=== PATIENT | female | born 1980 | race Caucasian/White ===

== ENCOUNTER 2016-06-28 08:13 | Emergency (ER) | payer SELFPAY ==
[2016-06-28] MEDS ORDERED: METOCLOPRAMIDE 5 MG/ML 2 ML VIAL IVP STA (08:58)
[2016-06-28] MEDS ORDERED: KETOROLAC 30 MG/ML 1 ML VIAL IVP STA (08:58)
[2016-06-28] MEDS ORDERED: diphenhydrAMINE 50 MG/ML 1 ML VIAL IVP STA (08:58)
[2016-06-28] MEDS ORDERED: SODIUM CHLORIDE 0.9% 1,000 ML IV STA (08:58)
--- NOTE | 2016-06-28 09:09 | ED ---
General Adult HPI - General Chief complaint: Headache Stated complaint: Cold Time Seen by Provider: 06/28/16 08:46 Source: patient, RN notes reviewed Mode of arrival: ambulatory Limitations: no limitations - History of Present Illness Initial comments: Patient is a 36-year-old female who presents emergency room today with chief complaint of headache with symptoms of nausea times one day. She admits that symptoms started yesterday. He admits that she's had these headaches in the past with her history of Abiel's. States she has been able take her steroids at home along with her seizure medication. She states she is feeling nauseated having increased headaches inside and top of her head. States consistent with headaches that she's had in the past and there is nothing new. Patient also admits to cough congestion over the last 2 months. States still sputum production at times. States was treated with Z-Jc approximately 2 months ago for these symptoms. States she was told by the family doctor that she may have a persistent cough which she has had. Patient unaware of fever at triage. Does admit that she's had some bodyaches. Patient denies any shortness of breath , chest pain, back pain, abdominal pain, numbness or tingling, dysuria or hematuria, constipation or diarrhea, visual changes, or any other complaints. - Related Data Home Medications Medication Instructions Recorded Confirmed Cetirizine HCl/Pseudoephedrine 1 tab PO BID 11/06/13 06/28/16 [Zyrtec-D Tablet] Fludrocortisone [Florinef] 0.1 mg PO DAILY 11/06/13 06/28/16 Hydrocortisone [Cortef] 20 mg PO QAM 11/06/13 06/28/16 Hydrocortisone [Cortef] 10 mg PO HS 06/28/16 06/28/16 carBAMazepine [TEGretol] 200 mg PO BID 06/28/16 06/28/16 Previous Rx's Medication Instructions Recorded Ondansetron Odt [Zofran ODT] 4 mg PO Q8HR PRN #15 tab 06/28/16 Oseltamivir [Tamiflu] 75 mg PO Q12HR 5 Days 06/28/16 Allergies Allergy/AdvReac Type Severity Reaction Status Date / Time erythromycin base AdvReac Unknown Verified 06/28/16 09:08 [Erythromycin Base] Review of Systems ROS Statement: Those systems with pertinent positive or pertinent negative responses have been documented in the HPI. ROS Other: All systems not noted in ROS Statement are negative. Past Medical History Past Medical History: Seizure Disorder Additional Past Medical History / Comment(s): addisons disease. epileptic History of Any Multi-Drug Resistant Organisms: None Reported Past Surgical History: Tubal Ligation Additional Past Surgical History / Comment(s): cosmetic sx Past Psychological History: Anxiety Smoking Status: Never smoker Past Alcohol Use History: None Reported Past Drug Use History: Marijuana General Exam - General Exam Comments Initial Comments: General: The patient is awake and alert, in no distress, and does not appear acutely ill. Eye: Pupils are equal, round and reactive to light, extra-ocular movements are intact. No nystagmus. There is normal conjunctiva bilaterally. No signs of icterus. Ears, nose, mouth and throat: There are moist mucous membranes and no oral lesions. Neck: The neck is supple, there is no tenderness or JVD. Cardiovascular: There is a regular rate and rhythm. No murmur, rub or gallop is appreciated. Respiratory: Lungs are clear to auscultation, respirations are non-labored, breath sounds are equal. No wheezes, stridor, rales, or rhonchi. Gastrointestinal: Soft, non-distended, non-tender abdomen without masses or organomegaly noted. There is no rebound or guarding present. No CVA tenderness. Bowel sounds are unremarkable. Musculoskeletal: Normal ROM, no tenderness. Strength 5/5. Sensation intact. Pulses equal bilaterally 2+. Neurological: A&O x 3. CN II-XII intact, There are no obvious motor or sensory deficits. Coordination appears grossly intact. Speech is normal. Skin: Skin is warm and dry and no rashes or lesions are noted. Psychiatric: Cooperative, appropriate mood & affect, normal judgment. Limitations: no limitations Course Vital Signs 06/28/16 08:15 Temperature 100.9 F H Pulse Rate 59 L Respiratory 17 Rate Blood Pressure 107/55 O2 Sat by Pulse 96 Oximetry Medical Decision Making - Medical Decision Making Case discussed in detail with attending physician Dr. Velasquez. Patient reexamined at this time shows no signs of distress. Patient will be given a loading dose of steroids here in the emergency room. Patient feeling better after medications. Patient influenza A positive. Symptoms started yesterday was treated with Tamiflu. Feeling better will be discharged home. Advised faulted family doctor over the next advised return to emergency room if any symptoms increase or worsen. Patient states understanding and is in agreement. - Lab Data Result diagrams: 06/28/16 09:23 06/28/16 09:23 Lab Results 06/28/16 06/28/16 06/28/16 Range/Units 09:23 09:23 09:23 WBC 3.2 L (3.8-10.6) k/uL RBC 3.94 (3.80-5.40) m/uL Hgb 12.0 (11.4-16.0) gm/dL Hct 35.4 (34.0-46.0) % MCV 89.9 (80.0-100.0) fL MCH 30.5 (25.0-35.0) pg MCHC 33.9 (31.0-37.0) g/dL RDW 12.3 (11.5-15.5) % Plt Count 212 (150-450) k/uL Neutrophils % 58 % Lymphocytes % 32 % Monocytes % 7 % Eosinophils % 0 % Basophils % 1 % Neutrophils # 1.9 (1.3-7.7) k/uL Lymphocytes # 1.0 (1.0-4.8) k/uL Monocytes # 0.2 (0-1.0) k/uL Eosinophils # 0.0 (0-0.7) k/uL Basophils # 0.0 (0-0.2) k/uL Sodium 140 (137-145) mmol/L Potassium 3.3 L (3.5-5.1) mmol/L Chloride 103 (98-107) mmol/L Carbon Dioxide 26 (22-30) mmol/L Anion Gap 11 mmol/L BUN 5 L (7-17) mg/dL Creatinine 0.70 (0.52-1.04) mg/dL Est GFR (MDRD) Af Amer >60 (>60 ml/min/1.73 sqM) Est GFR (MDRD) Non-Af >60 (>60 ml/min/1.73 sqM) Glucose 89 (74-99) mg/dL Calcium 8.1 L (8.4-10.2) mg/dL Magnesium 1.8 (1.6-2.3) mg/dL Total Bilirubin 0.5 (0.2-1.3) mg/dL AST 15 (14-36) U/L ALT 17 (9-52) U/L Alkaline Phosphatase 103 (38-126) U/L Total Protein 6.0 L (6.3-8.2) g/dL Albumin 3.6 (3.5-5.0) g/dL Influenza Type A RNA Detected H (Not Detectd) Influenza Type B (PCR) Not Detected (Not Detectd) Disposition Clinical Impression: Influenza A Disposition: HOME SELF-CARE Condition: Good Instructions: Influenza (ED) Additional Instructions: Please use medication as discussed. Please follow-up with family doctor in the next 2 days of symptoms have not improved. Please return to emergency room if the symptoms increase or worsen or for any other concerns. Prescriptions: Ondansetron Odt [Zofran ODT] 4 mg PO Q8HR PRN #15 tab PRN Reason: Nausea Oseltamivir [Tamiflu] 75 mg PO Q12HR 5 Days Time of Disposition: 11:13
[2016-06-28 09:43] LABS: Basophils % (A) 1 %; CH 30.5; CHCM 34.1; Eosinophils % (A) 0 %; HCT 35.4 % (34.0-46.0); HDW 2.26; Luc # (Auto) 0.07; Luc % (Auto) 2; Lymphocytes % (A) 32 %; MCH 30.5 pg (25.0-35.0); MCHC 33.9 g/dL (31.0-37.0); MCV 89.9 fL (80.0-100.0); Mean Platelet Volume 7.2; Monocytes # (A) 0.2 k/uL (0-1.0); Monocytes % (A) 7 %; Neutrophils # (A) 1.9 k/uL (1.3-7.7); Neutrophils % (A) 58 %; RBC 3.94 m/uL (3.80-5.40); RDW 12.3 % (11.5-15.5); WBC 3.2 k/uL (3.8-10.6); WBC (Perox) 3.36
[2016-06-28 09:53] LABS: ALT 17 U/L (9-52); AST 15 U/L (14-36); Alkaline Phosphatase 103 U/L (38-126); Anion Gap 11 mmol/L; Blood Urea Nitrogen 5 mg/dL (7-17); Calcium 8.1 mg/dL (8.4-10.2); Carbon Dioxide 26 mmol/L (22-30); Chloride 103 mmol/L (98-107); Glucose 89 mg/dL (74-99); Magnesium 1.8 mg/dL (1.6-2.3); Non-African American GFR(MDRD) >60 (>60 ml/min/1.73 sqM); Potassium 3.3 mmol/L (3.5-5.1); Sodium 140 mmol/L (137-145); Total Bilirubin 0.5 mg/dL (0.2-1.3)
--- NOTE | 2016-06-28 10:10 | XR ---
EXAMINATION TYPE: XR chest 2V DATE OF EXAM: 06/28/2016 10:02 AM HISTORY: cough. REFERENCE: Previous study dated 10/15/2015. FINDINGS: The lungs are clear. Pleural spaces are clear. Heart size is normal. IMPRESSION: NORMAL CHEST.
[2016-06-28] MEDS ORDERED: POTASSIUM CHLORIDE ER 20 MEQ TAB.ER PO STA (10:47)
[2016-06-28] MEDS ORDERED: methylPREDNISolone SOD SUCCI 125 MG/2 ML VIAL IV STA (11:02)
[2016-06-28] MEDS ORDERED: HYDROmorphone 1 MG/ML 1 ML SYRINGE IVP STA (11:02)
[2016-06-28] MEDS ORDERED: ONDANSETRON 4 MG/2 ML VIAL IVP STA (11:02)
[2016-06-28 12:20] VITALS: BP 110/64; PULSE 60; RESP 14; TEMP 99.1
== END 2016-06-28 12:20 | disposition home or self-care (01) ==
LOC: EC 08:13
DX: J09.X2 Influenza due to identified novel influenza A virus with other respiratory manifestations (principal); E27.1 Primary adrenocortical insufficiency; G40.909 Epilepsy, unspecified, not intractable, without status epilepticus; Z79.899 Other long term (current) drug therapy; Z79.52 Long term (current) use of systemic steroids
CPT/HCPCS: 99284; 96374; 96375 ×5; 96361; 36415; 80053; 83735; 85025; 87502; 71020; J1200; J2765; J2930; J2405; J1885; J1170

== ENCOUNTER 2020-11-15 03:12 | Observation (INO) | payer MEDICAID ==
[2020-11-15] MEDS ORDERED: KETOROLAC 15 MG/ML 1 ML VIAL IVP STA (03:48)
[2020-11-15] MEDS ORDERED: HYDROmorphone 0.5 MG/0.5 ML SYRINGE IVP STA (03:48)
[2020-11-15 04:07] LABS: Basophils % (A) 0 %; Eosinophils % (A) 0 %; HCT 34.9 % (34.0-46.0); HGB 11.9 gm/dL (11.4-16.0); Lymphocytes # (A) 1.7 k/uL (1.0-4.8); Lymphocytes % (A) 22 %; MCH 30.6 pg (25.0-35.0); MCHC 34.1 g/dL (31.0-37.0); MCV 89.8 fL (80.0-100.0); Mean Platelet Volume 7.2; Monocytes # (A) 0.3 k/uL (0-1.0); Monocytes % (A) 4 %; Neutrophils # (A) 5.6 k/uL (1.3-7.7); Neutrophils % (A) 73 %; Platelet Count 296 k/uL (150-450); RBC 3.88 m/uL (3.80-5.40); RDW 12.1 % (11.5-15.5); WBC 7.7 k/uL (3.8-10.6)
[2020-11-15 04:15] LABS: ALT 13 U/L (4-34); AST 21 U/L (14-36); African American GFR (CKD) >90 (>60 ml/min/1.73 sqM); Albumin 3.5 g/dL (3.5-5.0); Alkaline Phosphatase 88 U/L (38-126); Amylase 38 U/L (30-110); Anion Gap 6 mmol/L; Blood Urea Nitrogen 12 mg/dL (7-17); Calcium 8.7 mg/dL (8.4-10.2); Carbon Dioxide 26 mmol/L (22-30); Chloride 108 mmol/L (98-107); Glucose 121 mg/dL (74-99); Lipase 83 U/L (23-300); Non-African American GFR(CKD) >90 (>60 ml/min/1.73 sqM); Potassium 3.6 mmol/L (3.5-5.1); Sodium 140 mmol/L (137-145); Total Bilirubin 0.2 mg/dL (0.2-1.3); Total Protein 5.9 g/dL (6.3-8.2)
[2020-11-15 04:18] LABS: Amorphous Sediment,Urine Rare /hpf; Appearance,Urine Cloudy (Clear); Bacteria,Urine Rare /hpf; Bilirubin,Urine Negative (Negative); Blood,Urine Negative (Negative); Color,Urine Yellow; Glucose,Urine (UA) Negative (Negative); Ketones,Urine Negative (Negative); Leukocyte Esterase,Urine Small (Negative); Mucus,Urine Few /hpf; Nitrite,Urine Negative (Negative); PH, Urine 6.5 (5.0-8.0); Protein,Urine Negative (Negative); Specific Gravity,Urine 1.024 (1.001-1.035); Squamous Epithelial Cell,Urine 6 /hpf (0-4); Urobilinogen,Urine <2.0 mg/dL (<2.0); WBC,Urine 2 /hpf (0-5)
--- NOTE | 2020-11-15 06:20 | ED ---
Abdominal Pain HPI - General Source: patient Mode of arrival: ambulatory Limitations: no limitations - History of Present Illness MD Complaint: abdominal pain Onset/Timin -: hour(s) Location: LUQ, RUQ, epigastric Radiation: none Migration to: no migration Severity: severe Quality: stabbing, sharp Consistency: constant Improves With: nothing Worsens With: nothing Associated Symptoms: nausea - Related Data LMP (females 10-50): 1 month <Carlos A Guerrero - Last Filed: 11/15/20 06:18> <Harinder Montoya - Last Filed: 11/15/20 08:12> - General Chief Complaint: Abdominal Pain Stated Complaint: ABD Pain Time Seen by Provider: 11/15/20 03:21 - Related Data Home Medications Medication Instructions Recorded Confirmed Fludrocortisone [Florinef] 0.1 mg PO DAILY 11/06/13 11/15/20 Hydrocortisone [Cortef] 15 mg PO DAILY 11/06/13 11/15/20 Hydrocortisone [Cortef] 10 mg PO HS 06/28/16 11/15/20 carBAMazepine [TEGretol] 200 mg PO BID 06/28/16 11/15/20 Cetirizine HCl [Zyrtec] 10 mg PO DAILY 11/15/20 11/15/20 Cholecalciferol [Vitamin D3 (25 50 mcg PO DAILY 11/15/20 11/15/20 Mcg = 1000 Iu)] Phentermine HCl [Adipex-P] 37.5 mg PO DAILY 11/15/20 11/15/20 Allergies Allergy/AdvReac Type Severity Reaction Status Date / Time erythromycin base AdvReac Interacts Verified 11/15/20 07:22 [Erythromycin Base] w/seizure meds Review of Systems ROS Other: All systems not noted in ROS Statement are negative. Constitutional: Denies: fever, chills Respiratory: Denies: cough, dyspnea Cardiovascular: Denies: chest pain, palpitations, edema Gastrointestinal: Reports: abdominal pain, nausea. Denies: vomiting, diarrhea, constipation, melena, hematochezia Genitourinary: Denies: dysuria, frequency, hematuria, abnormal menses Musculoskeletal: Denies: back pain Skin: Denies: rash Neurological: Denies: headache, weakness, numbness <Carlos A Guerrero - Last Filed: 11/15/20 06:18> ROS Other: All systems not noted in ROS Statement are negative. <Harinder Montoya - Last Filed: 11/15/20 08:12> ROS Statement: Those systems with pertinent positive or pertinent negative responses have been documented in the HPI. Past Medical History Past Medical History: Seizure Disorder Additional Past Medical History / Comment(s): addisons disease. epileptic History of Any Multi-Drug Resistant Organisms: None Reported Past Surgical History: Tubal Ligation Additional Past Surgical History / Comment(s): cosmetic sx Past Psychological History: Anxiety Smoking Status: Never smoker Past Alcohol Use History: None Reported Past Drug Use History: Marijuana <CesarCarlos A - Last Filed: 11/15/20 06:18> General Exam Limitations: no limitations General appearance: alert, in no apparent distress Head exam: Present: atraumatic, normocephalic Eye exam: Present: normal appearance. Absent: scleral icterus, conjunctival injection ENT exam: Present: normal oropharynx Neck exam: Present: normal inspection Respiratory exam: Present: normal lung sounds bilaterally. Absent: respiratory distress, wheezes, rales, rhonchi, stridor Cardiovascular Exam: Present: regular rate, normal rhythm, normal heart sounds. Absent: systolic murmur, diastolic murmur, rubs, gallop GI/Abdominal exam: Present: soft, tenderness, normal bowel sounds. Absent: distended, guarding, rebound, rigid, mass, hernia Extremities exam: Present: normal inspection, normal capillary refill. Absent: pedal edema, calf tenderness Back exam: Present: normal inspection. Absent: CVA tenderness (R), CVA tenderne ss (L) Neurological exam: Present: alert Skin exam: Present: warm, dry, intact, normal color. Absent: rash <CesarCarlos A - Last Filed: 11/15/20 06:18> Course Vital Signs 11/15/20 03:16 Temperature 98.5 F Pulse Rate 99 Respiratory 18 Rate Blood Pressure 114/77 O2 Sat by Pulse 98 Oximetry Medical Decision Making - Lab Data Result diagrams: 11/15/20 03:53 11/15/20 03:53 <CesarCarlos A - Last Filed: 11/15/20 06:18> - Lab Data Result diagrams: 11/15/20 03:53 11/15/20 03:53 - Radiology Data Radiology results: report reviewed (Gallbladder ultrasound shows wall thickening and cholelithiasis with positive Barber sign. Findings worrisome for acute cholecystitis.) <Harinder Montoya - Last Filed: 11/15/20 08:12> - Medical Decision Making Patient reevaluated. Patient updated on results and plan. Case was discussed with Dr. Greenwood, who will admit for hospital call. (Harinder Montoya) - Lab Data Lab Results 11/15/20 11/15/20 11/15/20 Range/Units 03:53 03:53 03:53 WBC 7.7 (3.8-10.6) k/uL RBC 3.88 (3.80-5.40) m/uL Hgb 11.9 (11.4-16.0) gm/dL Hct 34.9 (34.0-46.0) % MCV 89.8 (80.0-100.0) fL MCH 30.6 (25.0-35.0) pg MCHC 34.1 (31.0-37.0) g/dL RDW 12.1 (11.5-15.5) % Plt Count 296 (150-450) k/uL MPV 7.2 Neutrophils % 73 % Lymphocytes % 22 % Monocytes % 4 % Eosinophils % 0 % Basophils % 0 % Neutrophils # 5.6 (1.3-7.7) k/uL Lymphocytes # 1.7 (1.0-4.8) k/uL Monocytes # 0.3 (0-1.0) k/uL Eosinophils # 0.0 (0-0.7) k/uL Basophils # 0.0 (0-0.2) k/uL Sodium (137-145) mmol/L Potassium (3.5-5.1) mmol/L Chloride (98-107) mmol/L Carbon Dioxide (22-30) mmol/L Anion Gap mmol/L BUN (7-17) mg/dL Creatinine (0.52-1.04) mg/dL Est GFR (CKD-EPI)AfAm (>60 ml/min/1.73 sqM) Est GFR (CKD-EPI)NonAf (>60 ml/min/1.73 sqM) Glucose (74-99) mg/dL Calcium (8.4-10.2) mg/dL Total Bilirubin (0.2-1.3) mg/dL AST (14-36) U/L ALT (4-34) U/L Alkaline Phosphatase (38-126) U/L Total Protein (6.3-8.2) g/dL Albumin (3.5-5.0) g/dL Amylase (30-110) U/L Lipase (23-300) U/L Urine Color Yellow Urine Appearance Cloudy H (Clear) Urine pH 6.5 (5.0-8.0) Ur Specific Issue 1.024 (1.001-1.035) Urine Protein Negative (Negative) Urine Glucose (UA) Negative (Negative) Urine Ketones Negative (Negative) Urine Blood Negative (Negative) Urine Nitrite Negative (Negative) Urine Bilirubin Negative (Negative) Urine Urobilinogen <2.0 (<2.0) mg/dL Ur Leukocyte Esterase Small H (Negative) Urine WBC 2 (0-5) /hpf Ur Squamous Epith Cells 6 H (0-4) /hpf Amorphous Sediment Rare H (None) /hpf Urine Bacteria Rare H (None) /hpf Urine Mucus Few H (None) /hpf Urine HCG, Qual Not Detected (Not Detectd) 11/15/20 Range/Units 03:53 WBC (3.8-10.6) k/uL RBC (3.80-5.40) m/uL Hgb (11.4-16.0) gm/dL Hct (34.0-46.0) % MCV (80.0-100.0) fL MCH (25.0-35.0) pg MCHC (31.0-37.0) g/dL RDW (11.5-15.5) % Plt Count (150-450) k/uL MPV Neutrophils % % Lymphocytes % % Monocytes % % Eosinophils % % Basophils % % Neutrophils # (1.3-7.7) k/uL Lymphocytes # (1.0-4.8) k/uL Monocytes # (0-1.0) k/uL Eosinophils # (0-0.7) k/uL Basophils # (0-0.2) k/uL Sodium 140 (137-145) mmol/L Potassium 3.6 (3.5-5.1) mmol/L Chloride 108 H (98-107) mmol/L Carbon Dioxide 26 (22-30) mmol/L Anion Gap 6 mmol/L BUN 12 (7-17) mg/dL Creatinine 0.61 (0.52-1.04) mg/dL Est GFR (CKD-EPI)AfAm >90 (>60 ml/min/1.73 sqM) Est GFR (CKD-EPI)NonAf >90 (>60 ml/min/1.73 sqM) Glucose 121 H (74-99) mg/dL Calcium 8.7 (8.4-10.2) mg/dL Total Bilirubin 0.2 (0.2-1.3) mg/dL AST 21 (14-36) U/L ALT 13 (4-34) U/L Alkaline Phosphatase 88 (38-126) U/L Total Protein 5.9 L (6.3-8.2) g/dL Albumin 3.5 (3.5-5.0) g/dL Amylase 38 (30-110) U/L Lipase 83 (23-300) U/L Urine Color Urine Appearance (Clear) Urine pH (5.0-8.0) Ur Specific Issue (1.001-1.035) Urine Protein (Negative) Urine Glucose (UA) (Negative) Urine Ketones (Negative) Urine Blood (Negative) Urine Nitrite (Negative) Urine Bilirubin (Negative) Urine Urobilinogen (<2.0) mg/dL Ur Leukocyte Esterase (Negative) Urine WBC (0-5) /hpf Ur Squamous Epith Cells (0-4) /hpf Amorphous Sediment (None) /hpf Urine Bacteria (None) /hpf Urine Mucus (None) /hpf Urine HCG, Qual (Not Detectd) Disposition <Carlos A Guerrero - Last Filed: 11/15/20 06:18> Is patient prescribed a controlled substance at d/c from ED?: No Decision Time: 08:07 <Harinder Montoay - Last Filed: 11/15/20 08:12> Clinical Impression: Acute cholecystitis Disposition: ADMITTED IP TO THIS HOSP Referrals: None,Stated [Primary Care Provider] - 1-2 days
--- NOTE | 2020-11-15 08:01 | US ---
EXAMINATION TYPE: US abdomen limited DATE OF EXAM: 11/15/2020 COMPARISON: NONE CLINICAL HISTORY: attention RUQ. Abd pain EXAM MEASUREMENTS: Liver Length: 15.1 cm Gallbladder Wall: 0.5 cm CBD: 0.6 cm Right Kidney: 9.7 x 5.8 x 4.7 cm Pancreas: Tail obscured by overlying bowel gas, visualized portions wnl Liver: wnl Gallbladder: Stones visualized. Gallbladder appears hydropic with gallbladder wall thickening Evidence for sonographic Barber's sign: Yes CBD: Measuring upper limits of normal Right Kidney: No hydronephrosis or masses seen IMPRESSION: Gallbladder wall thickening with cholelithiasis and technologist reports sonographic Barber's sign pr esent. This constellation of findings is worrisome for acute cholecystitis. Please correlate clinical ly.
[2020-11-15] MEDS ORDERED: HYDROmorphone 1 MG/ML 1 ML SYRINGE IVP PRN ×2 (08:08→13:07)
[2020-11-15] MEDS ORDERED: ONDANSETRON 4 MG/2 ML VIAL IVP PRN (08:08)
[2020-11-15] MEDS ORDERED: HYDROmorphone 0.5 MG/0.5 ML SYRINGE IVP PRN (08:08)
[2020-11-15] MEDS ORDERED: NALOXONE 0.4 MG/ML 1 ML VIAL IV PRN (08:08)
[2020-11-15] MEDS ORDERED: PIPERACILLIN-TAZOBACTAM 3.375 GM in SODIUM CHLORIDE 0.9% 100 ML IVPB ONE (08:15)
[2020-11-15] MEDS ORDERED: PANTOPRAZOLE 40 MG/10 ML VIAL IV SCH (09:00)
[2020-11-15 09:09] LABS: INR 0.9 (<1.2); Partial Thromboplastin Time 22.6 sec (22.0-30.0); Prothrombin Time 9.8 sec (9.0-12.0)
[2020-11-15] MEDS: SODIUM CHLORIDE 0.9% 1,000 ML IV SCH ×3 (09:18→21:35)
[2020-11-15] MEDS: HYDROCORTISONE SUCCINATE 100 MG/2 ML VIAL IV SCH ×3 (09:26→23:50)
[2020-11-15] MEDS ORDERED: HEPARIN SODIUM,PORCINE/PF 5,000 UNIT/0.5 ML SYRINGE SQ ONE (12:21)
--- NOTE | 2020-11-15 12:22 | P.GSHP ---
History of Present Illness H&P Date: 11/15/20 Chief Complaint: Right upper quadrant pain This a 40-year-old female who presents today to the emergency room with right quadrant pain. Patient will have evidence of cholecystitis and cholelithiasis. Past Medical History Past Medical History: Seizure Disorder Additional Past Medical History / Comment(s): addisons disease. epileptic History of Any Multi-Drug Resistant Organisms: None Reported Past Surgical History: Tubal Ligation Additional Past Surgical History / Comment(s): cosmetic sx Past Psychological History: Anxiety Smoking Status: Never smoker Past Alcohol Use History: None Reported Past Drug Use History: Marijuana Medications and Allergies Home Medications Medication Instructions Recorded Confirmed Type Fludrocortisone [Florinef] 0.1 mg PO DAILY 11/06/13 11/15/20 History Hydrocortisone [Cortef] 15 mg PO DAILY 11/06/13 11/15/20 History Hydrocortisone [Cortef] 10 mg PO HS 06/28/16 11/15/20 History carBAMazepine [TEGretol] 200 mg PO BID 06/28/16 11/15/20 History Cetirizine HCl [Zyrtec] 10 mg PO DAILY 11/15/20 11/15/20 History Cholecalciferol [Vitamin D3 (25 50 mcg PO DAILY 11/15/20 11/15/20 History Mcg = 1000 Iu)] Phentermine HCl [Adipex-P] 37.5 mg PO DAILY 11/15/20 11/15/20 History Allergies Allergy/AdvReac Type Severity Reaction Status Date / Time erythromycin base AdvReac Interacts Verified 11/15/20 07:22 [Erythromycin Base] w/seizure meds Surgical - Exam Vital Signs Temp Pulse Resp BP Pulse Ox 98.5 F 99 18 114/77 98 11/15/20 03:16 11/15/20 03:16 11/15/20 03:16 11/15/20 03:16 11/15/20 03:16 - General well developed, well nourished, no distress - Eyes PERRL - ENT normal pinna - Neck no masses - Respiratory normal expansion - Cardiovascular Rhythm: regular - Abdomen Tender right upper quadrant Abdomen: soft Results - Labs 11/15/20 03:53 11/15/20 03:53 Abnormal Lab Results - Last 24 Hours (Table) 11/15/20 11/15/20 Range/Units 03:53 03:53 Chloride 108 H (98-107) mmol/L Glucose 121 H (74-99) mg/dL Total Protein 5.9 L (6.3-8.2) g/dL Urine Appearance Cloudy H (Clear) Ur Leukocyte Esterase Small H (Negative) Ur Squamous Epith Cells 6 H (0-4) /hpf Amorphous Sediment Rare H (None) /hpf Urine Bacteria Rare H (None) /hpf Urine Mucus Few H (None) /hpf Diabetes panel 11/15/20 Range/Units 03:53 Sodium 140 (137-145) mmol/L Potassium 3.6 (3.5-5.1) mmol/L Chloride 108 H (98-107) mmol/L Carbon Dioxide 26 (22-30) mmol/L BUN 12 (7-17) mg/dL Creatinine 0.61 (0.52-1.04) mg/dL Glucose 121 H (74-99) mg/dL Calcium 8.7 (8.4-10.2) mg/dL AST 21 (14-36) U/L ALT 13 (4-34) U/L Alkaline Phosphatase 88 (38-126) U/L Total Protein 5.9 L (6.3-8.2) g/dL Albumin 3.5 (3.5-5.0) g/dL Calcium panel 11/15/20 Range/Units 03:53 Calcium 8.7 (8.4-10.2) mg/dL Albumin 3.5 (3.5-5.0) g/dL Pituitary panel 11/15/20 Range/Units 03:53 Sodium 140 (137-145) mmol/L Potassium 3.6 (3.5-5.1) mmol/L Chloride 108 H (98-107) mmol/L Carbon Dioxide 26 (22-30) mmol/L BUN 12 (7-17) mg/dL Creatinine 0.61 (0.52-1.04) mg/dL Glucose 121 H (74-99) mg/dL Calcium 8.7 (8.4-10.2) mg/dL Adrenal panel 11/15/20 Range/Units 03:53 Sodium 140 (137-145) mmol/L Potassium 3.6 (3.5-5.1) mmol/L Chloride 108 H (98-107) mmol/L Carbon Dioxide 26 (22-30) mmol/L BUN 12 (7-17) mg/dL Creatinine 0.61 (0.52-1.04) mg/dL Glucose 121 H (74-99) mg/dL Calcium 8.7 (8.4-10.2) mg/dL Total Bilirubin 0.2 (0.2-1.3) mg/dL AST 21 (14-36) U/L ALT 13 (4-34) U/L Alkaline Phosphatase 88 (38-126) U/L Total Protein 5.9 L (6.3-8.2) g/dL Albumin 3.5 (3.5-5.0) g/dL Assessment and Plan Assessment: Cholelithiasis Cholecystitis We'll perform laparoscopic cholecystectomy
[2020-11-15] MEDS ORDERED: HYDROCORTISONE SUCCINATE 100 MG/2 ML VIAL IV STA (12:28)
[2020-11-15] MEDS ORDERED: ONDANSETRON 4 MG/2 ML VIAL IVP ONE (12:29)
[2020-11-15] MEDS ORDERED: IV FLUID CONTINUATION 1,000 ML IV ONE (12:29)
[2020-11-15] MEDS ORDERED: SCOPOLAMINE 1.5MG/72HR PATCH TRANSDERM ONE (12:30)
[2020-11-15] MEDS ORDERED: DEXAMETHASONE SOD PHOSPHATE 4 MG/ML 1 ML VIAL IV ONE (12:30)
[2020-11-15] MEDS ORDERED: HEPARIN SODIUM,PORCINE 5,000 UNIT/ML 1 ML VIAL SQ ONE (12:31)
[2020-11-15] MEDS ORDERED: SUCCINYLCHOLINE CHLORIDE 100 MG/5 ML SYR IV ONE (12:35)
[2020-11-15] MEDS ORDERED: LIDOCAINE 1% INJ 10MG/ML (20 ML MDV) ONE (12:35)
[2020-11-15] MEDS ORDERED: PROPOFOL 10 MG/ML 20 ML VIAL IV ONE (12:35)
[2020-11-15] MEDS ORDERED: fentaNYL (PF) 50 MCG/ML 2 ML AMP ONE (12:35)
[2020-11-15] MEDS ORDERED: MIDAZOLAM 2 MG/2 ML VIAL ONE (12:35)
[2020-11-15] MEDS ORDERED: ROCURONIUM 10 MG/ML (5 ML VIAL) IV ONE (12:35)
[2020-11-15] MEDS ORDERED: NEOSTIGMINE 1 MG/ML 10 ML VIAL ONE (12:35)
[2020-11-15] MEDS ORDERED: KETAMINE 10 MG/ML 20 ML VIAL ONE (12:35)
[2020-11-15] MEDS ORDERED: GLYCOPYRROLATE 0.2 MG/ML 2 ML VIAL ONE (12:35)
[2020-11-15] MEDS ORDERED: KETOROLAC 15 MG/ML 1 ML VIAL ONE (12:35)
[2020-11-15] MEDS ORDERED: BUPIVACAINE (PF) 0.5% 30 ML VIAL SQ ONE (12:59)
--- NOTE | 2020-11-15 13:07 | P.OP ---
Date of Procedure: 11/15/20 Preoperative Diagnosis: Cholecystitis Postoperative Diagnosis: Cholecystitis Procedure(s) Performed: Laparoscopic cholecystectomy Anesthesia: AUSTEN Surgeon: Caio Talbot Estimated Blood Loss (ml): 5 Pathology: other (Gallbladder) Condition: stable Disposition: PACU Description of Procedure: The patient was placed on the operating table. The patient received a general endotracheal tube anesthesia. The patients abdomen was prepped and draped in the usual sterile fashion. Through an infraumbilical stab incision, the fascia of the anterior abdominal wall was grasped with a pair of Kochers and then the Veress needle was placed in the peritoneal cavity. Position of the Veress needle was confirmed with positive drop test. The abdomen was then insufflated. After adequate insufflation, the 10 mm trocar was placed in the peritoneal cavity. Following this the laparoscope was placed in the peritoneal cavity. The patient was placed in the head-up, right side up position and then a 5 mm trocar was placed in the right lateral and right subcostal position under direct visualization. A 8 mm trocar was placed in the epigastric position. The gallbladder was grasped in the fundus and infundibulum. Traction on the gallbladder was placed in the lateral and the cephalad positions. The triangle of Calot was visualized.. The cystic duct was bluntly dissected until the union of the cystic duct and common bile duct was seen. A critical view of safety was achieved. The cystic duct was then divided and sealed with the Harmonic scissors. A PDS Endoloop was then placed throughout the cystic duct stump. The cystic artery divided and sealed with the Harmonic scissors. The gallbladder was then removed from the liver bed using Harmonic scissors. The gallbladder was then extracted through the epigastric port site. Operative field was checked for any bleeding spots and Harmonic scissors was used to coagulate the liver bed. The abdomen was irrigated. The trocars were removed. The skin was closed using interrupted 3-0 Vicryl suture. Dermabond dressing were applied. The patient tolerated the procedure well.
[2020-11-15] MEDS ORDERED: HYDROmorphone 0.5 MG/0.5 ML SYRINGE IVP ONE ×3 (13:40→14:12)
[2020-11-15] MEDS ORDERED: LACTATED RINGERS 1,000 ML IV ONE ×2 (13:43)
[2020-11-15] MEDS ORDERED: HYDROmorphone 0.5 MG/0.5 ML SYRINGE SQ ONE (15:18)
[2020-11-15] MEDS: PIPERACILLIN-TAZOBACTAM 3.375 GM in SODIUM CHLORIDE 0.9% 100 ML IVPB SCH ×2 (17:10→23:50)
--- NOTE | 2020-11-15 19:25 | CONS ---
CONSULTATION DATE OF SERVICE: 11/15/2020 REASON FOR CONSULTATION: Advice regarding seizure disorder other multiple medical issues, requested by Dr. Talbot. HISTORY OF PRESENT ILLNESS: This 40-year-old woman with a past MEDICAL history of seizure disorder, Abiel's disease, history of tubal ligation, anxiety, to be followed by Dr. Troy Kaiser in the outpatient setting, underwent laparoscopic cholecystectomy for acute cholecystitis by Dr. Talbot. There is no history of chest pain. No history of palpitations, headache, loss of consciousness, seizures at this time. PAST MEDICAL HISTORY: Of seizure disorder, dizziness. MEDICATIONS: Home medications are Florinef 0.1 mg q.h.s. vitamin D3, ( ), Tegretol, Adipex, Cortef 10 mg q.h.s., ( )50 mg p.o. daily. ALLERGIES: ERYTHROMYCIN. FAMILY HISTORY: No history of heart disease or strokes. SOCIAL HISTORY: History of THC. No history of smoking. REVIEW OF SYSTEMS: ENT: No diminished vision or hearing. CARDIOVASCULAR: No angina or palpitations, otherwise as mentioned earlier. GI: As mentioned earlier. : No dysuria. NERVOUS SYSTEM: As mentioned earlier. ALLERGY/IMMUNOLOGY: No asthma or hayfever. MUSCULOSKELETAL: As mentioned. ENDOCRINE: As mentioned earlier. CONSTITUTIONAL: As mentioned earlier. DERMATOLOGY: Negative. RHEUMATOLOGY: Negative. PSYCHIATRY: As mentioned earlier. PHYSICAL EXAMINATION: Alert oriented x3. Pulse 74 blood pressure 102/60, respirations 16, temperature 97.6, pulse ox 97% on 2 L. HEENT: Conjunctivae normal. Oral mucosa moist. NECK: No jugular venous distention. No carotid bruits. No lymph node enlargement. RESPIRATION: Diminished in the bases, no rhonchi, no crackles. ABDOMEN: Soft status post surgery. LEGS: No edema, no swelling. NERVOUS SYSTEM: Higher functions as mentioned earlier. Moves all 4 limbs. No focal motor signs. LYMPHATICS: None. SKIN: No rash. JOINTS: No active arthropathy. LABS: CBC within normal limits. INR is 0.9 sodium 140, potassium 3.6, and glucose 121. UA appears to be cloudy. ASSESSMENT: 1. Acute cholecystitis, status post laparoscopic cholecystectomy. 2. History of seizure disorder. 3. History of dizziness. 4. History of ( ). 5. History of anxiety. RECOMMENDATION AND DISCUSSION: In this 40-year-old woman who presented with multiple medical issues, at this time I recommend to continue the current management and treatment. Stress dose hydrocortisone has been given. We will resume the usual dose of hydrocortisone and the patient is on empiric antibiotics as well. I would order repeat labs in the morning. Otherwise, we will follow the patient closely. The patient may be asked to follow with Dr. Troy Kaiser closely after discharge. Thank you, Dr. Talbot, for letting us participate in the care of this patient. MMODL / IJN: [id number] /
[2020-11-15] MEDS ORDERED: HYDROCORTISONE 10 MG TAB PO SCH (21:00)
[2020-11-15] MEDS ORDERED: LORATADINE 10 MG TAB PO SCH (21:00)
[2020-11-15] MEDS ORDERED: CHOLECALCIFEROL 25 MCG (1000 IU) TABLET PO SCH (21:00)
[2020-11-15] MEDS ORDERED: carBAMazepine 200 MG TAB PO SCH ×2 (21:00)
[2020-11-15] MEDS ORDERED: FLUDROCORTISONE 0.1 MG TAB PO SCH (21:00)
[2020-11-15] MEDS: HYDROcodone/APAP 7.5-325MG 1 EACH TAB PO PRN (21:33)
[2020-11-16 02:05] VITALS: RESP 16
[2020-11-16 06:36] LABS: Basophils % (A) 0 %; Eosinophils % (A) 0 %; HCT 30.8 % (34.0-46.0); HGB 10.6 gm/dL (11.4-16.0); Lymphocytes # (A) 1.4 k/uL (1.0-4.8); Lymphocytes % (A) 13 %; MCH 31.4 pg (25.0-35.0); MCHC 34.5 g/dL (31.0-37.0); MCV 91.2 fL (80.0-100.0); Mean Platelet Volume 7.5; Monocytes # (A) 0.3 k/uL (0-1.0); Monocytes % (A) 3 %; Neutrophils # (A) 9.1 k/uL (1.3-7.7); Neutrophils % (A) 84 %; Platelet Count 279 k/uL (150-450); RBC 3.38 m/uL (3.80-5.40); RDW 12.2 % (11.5-15.5); WBC 10.8 k/uL (3.8-10.6)
[2020-11-16 06:51] LABS: ALT 12 U/L (4-34); AST 21 U/L (14-36); African American GFR (CKD) >90 (>60 ml/min/1.73 sqM); Albumin 2.9 g/dL (3.5-5.0); Albumin/Globulin Ratio 1.3; Alkaline Phosphatase 80 U/L (38-126); Amylase <30 U/L (30-110); Anion Gap 4 mmol/L; Blood Urea Nitrogen 7 mg/dL (7-17); Calcium 8.2 mg/dL (8.4-10.2); Carbon Dioxide 27 mmol/L (22-30); Chloride 109 mmol/L (98-107); Globulin 2.3 g/dL; Glucose 119 mg/dL (74-99); Lipase 46 U/L (23-300); Non-African American GFR(CKD) >90 (>60 ml/min/1.73 sqM); Sodium 140 mmol/L (137-145); Total Bilirubin 0.2 mg/dL (0.2-1.3); Total Protein 5.2 g/dL (6.3-8.2)
[2020-11-16] MEDS ORDERED: PANTOPRAZOLE 40 MG TABLET PO SCH (07:30)
[2020-11-16] MEDS: PIPERACILLIN-TAZOBACTAM 3.375 GM in SODIUM CHLORIDE 0.9% 100 ML IVPB SCH (07:34)
[2020-11-16] MEDS: HYDROcodone/APAP 7.5-325MG 1 EACH TAB PO PRN (07:36)
[2020-11-16 07:48] VITALS: BP 99/63; PULSE 73; TEMP 98.1
[2020-11-16] MEDS: SODIUM CHLORIDE 0.9% 1,000 ML IV SCH (07:56)
[2020-11-16] MEDS: HYDROCORTISONE SUCCINATE 100 MG/2 ML VIAL IV SCH (07:56)
[2020-11-16] MEDS ORDERED: ENOXAPARIN 40 MG/0.4 ML SYRINGE SQ SCH (09:00)
[2020-11-16] MEDS ORDERED: HYDROCORTISONE 10 MG TAB PO SCH (09:00)
[2020-11-16] MEDS ORDERED: NON FORMULARY DRUG (Phentermine Hcl [Adipex-P] 37.5 MG Tablet) PO SCH (09:00)
--- NOTE | 2020-11-16 11:53 | P.DS ---
Providers Date of admission: 11/15/20 08:39 Expected date of discharge: 11/16/20 Attending physician: Caio Talbot Consults: 11/15/20 13:09 Consult Physician Routine Consulting Provider: Andres Coffman Consult Reason/Comments: med manage Do you want consulting provider notified?: Yes Primary care physician: Stated None Hospital Course: Discharge diagnosis 1. Acute cholecystitis status post laparoscopic cholecystectomy Hospital course This a 40-year-old female who presents today to the emergency room with right quadrant pain. Patient with evidence of cholecystitis and cholelithiasis. Patient is status post laparoscopic cholecystectomy. She tolerated surgery well. Her pain is controlled. She is tolerating diet. She is afebrile. She has been up and ambulating. She is stable for discharge. Please refer to chart for any further details. Physician Production Statistical Clerk note has been reviewed by physician. Signing provider agrees with the documented findings, assessment, and plan of care. Patient Condition at Discharge: Stable Plan - Discharge Summary New Discharge Prescriptions: New HYDROcodone/APAP 5-325MG [[place] 5-325] 1 tab PO Q6HR PRN 3 Days #12 tab PRN Reason: Pain Docusate [Colace] 100 mg PO BID #30 capsule No Action Hydrocortisone [Cortef] 15 mg PO DAILY Fludrocortisone [Florinef] 0.1 mg PO HS carBAMazepine [TEGretol] 200 mg PO BID Hydrocortisone [Cortef] 10 mg PO HS Phentermine HCl [Adipex-P] 37.5 mg PO DAILY Cholecalciferol [Vitamin D3 (25 Mcg = 1000 Iu)] 50 mcg PO HS Cetirizine HCl [Zyrtec] 10 mg PO HS Discharge Medication List Fludrocortisone [Florinef] 0.1 mg PO HS 11/06/13 [History] Hydrocortisone [Cortef] 15 mg PO DAILY 11/06/13 [History] Hydrocortisone [Cortef] 10 mg PO HS 06/28/16 [History] carBAMazepine [TEGretol] 200 mg PO BID 06/28/16 [History] Cetirizine HCl [Zyrtec] 10 mg PO HS 11/15/20 [History] Cholecalciferol [Vitamin D3 (25 Mcg = 1000 Iu)] 50 mcg PO HS 11/15/20 [History] Phentermine HCl [Adipex-P] 37.5 mg PO DAILY 11/15/20 [History] Docusate [Colace] 100 mg PO BID #30 capsule 11/16/20 [Rx] HYDROcodone/APAP 5-325MG [[place] 5-325] 1 tab PO Q6HR PRN 3 Days #12 tab 11/16/20 [Rx] Follow up Appointment(s)/Referral(s): None,Stated [Primary Care Provider] - 1-2 days Caio Talbot MD [STAFF PHYSICIAN] - 1 Week Patient Instructions/Handouts: *Surgery [facility] - Laparoscopic Cholecystectomy Discharge Instructions Activity/Diet/Wound Care/Special Instructions: Medical service to complete discharge med rec No driving while taking [place] No lifting over 10 pounds You may shower. No soaking or tub baths for 2 weeks Very light activity until you are reevaluated at your follow up appointment with your surgeon low fat soft diet Discharge Disposition: HOME SELF-CARE
--- NOTE | 2020-11-16 19:52 | PN ---
PROGRESS NOTE DATE OF SERVICE: 11/16/2020. This 40-year-old woman who was admitted with acute cholecystitis, underwent laparoscopic cholecystectomy. The patient improved significantly. No chest pain. No palpitations. No fever. PHYSICAL EXAMINATION: Alert and oriented times three. Pulse 73, blood pressure 99/60, respirations 16, temperature 98.1, pulse ox 99 percent on room air. HEENT: Conjunctivae normal. Neck: No JVD. Cardiovascular: S1, S2. Respirations: Breath sounds diminished in the bases. No rhonchi. No crackles. Abdomen: Soft, status post surgery. Legs are no edema. No swelling. Nervous system: No focal deficits. LAB STUDIES: WBC 10.2, hemoglobin 10.6, otherwise other labs are noted. ASSESSMENT: 1. Acute cholecystitis, status post laparoscopic cholecystectomy. 2. History of seizure disorder. 3. History of dizziness. 4. Increased WBC possibly reactive in nature. 5. History of tubal ligation. 6. History of anxiety. 7. FULL CODE. RECOMMENDATIONS AND DISCUSSION: This 40-year-old woman who presented with multiple medical issues, at this time, the patient improved significantly. I would recommend to resume the home medications and follow with Dr. Troy Kaiser. MMODL / IJN: [id number] /
== END 2020-11-16 12:41 | disposition home or self-care (01) ==
LOC: EC 03:12 → 6PED 08:39 → 4SSUR 14:11 → 6NMEDSUR 14:52
PROVIDERS: ADMIT Surgery; ATTEND Surgery
DX: K80.12 Calculus of gallbladder with acute and chronic cholecystitis without obstruction (principal); G40.909 Epilepsy, unspecified, not intractable, without status epilepticus; E27.1 Primary adrenocortical insufficiency; F41.9 Anxiety disorder, unspecified; Z79.52 Long term (current) use of systemic steroids; Z79.899 Other long term (current) drug therapy; Z88.1 Allergy status to other antibiotic agents; Z98.51 Tubal ligation status; Z98.890 Other specified postprocedural states
CPT/HCPCS: 96374; 96375; 99285; 36415; 88304; 80053 ×2; 82150 ×2; 83690 ×2; 85025 ×2; 85610; 85730; 81001; 81025; 76705; 47562; G0378 ×4; J2543 ×2; J2250; J1644; J1100; J2710; J1720; J2405; J2001; J1650; J3010; J1885; J0330; J2704; C9113; J1170

== ENCOUNTER → 2020-12-01 | Outpatient (CLI) | payer MEDICAID ==
--- NOTE | 2020-12-02 14:32 | MM ---
Reason for exam: history of breast augmentation, asymptomatic. Baseline mammogram. History: Family history of breast cancer in paternal aunt. Retro-pectoral saline implants in both breasts, 1998. Took hormonal contraceptives for 7 years beginning at age 15. Physical Findings: Nurse Summary: 0.5cm nodule in the left breast at 3 o'clock (nurse cecilia). MG 3D Diag Mammo Imp W/Cad VIOLETTA Bilateral CC, MLO, and ID view(s) were taken. There are scattered fibroglandular densities. There is no discrete abnormality. Bilateral retropectoral saline implants. These results were verbally communicated with the patient and result sheet given to the patient on 12/01/20. ASSESSMENT: Incomplete: need additional imaging evaluation, BI-RAD 0 RECOMMENDATION: Ultrasound of both breasts.
--- NOTE | 2020-12-02 14:34 | USB ---
Reason for exam: additional evaluation requested from abnormal screening. History: Family history of breast cancer in paternal aunt. Retro-pectoral saline implants in both breasts, 1998. Took hormonal contraceptives for 7 years beginning at age 15. US Breast Limited BILAT Right limited breast ultrasound including focal area of concern, retroareolar and axilla demonstrates no cystic or solid lesion seen. Left limited breast ultrasound including focal area of concern, retroareolar and axilla demonstrates no cystic or solid lesion seen. Scanned right 8 o'clock and left 3 o'clock at palpable. These results were verbally communicated with the patient and result sheet given to the patient on 12/01/20. ASSESSMENT: Benign, BI-RAD 2 RECOMMENDATION: Routine screening mammogram of both breasts in 1 year. Manage on a clinical basis with regard to any suspicious palpable abnormality.
== END | disposition home or self-care (01) ==
LOC: RADMAMWWP 12:59
PROVIDERS: ATTEND Family Medicine
DX: R92.8 Other abnormal and inconclusive findings on diagnostic imaging of breast (principal); Z80.3 Family history of malignant neoplasm of breast; Z79.3 Long term (current) use of hormonal contraceptives; Z98.82 Breast implant status
CPT/HCPCS: 77062; 77066

== ENCOUNTER 2022-01-18 07:51 | Emergency (ER) | payer MEDICAID ==
[2022-01-18] MEDS ORDERED: SODIUM CHLORIDE 0.9% 500 ML 500 ML IV STA (09:05)
[2022-01-18] MEDS ORDERED: METOCLOPRAMIDE 5 MG/ML 2 ML VIAL IVP STA (09:05)
[2022-01-18] MEDS ORDERED: KETOROLAC 15 MG/ML 1 ML VIAL IVP STA (09:05)
[2022-01-18] MEDS ORDERED: diphenhydrAMINE 50 MG/ML 1 ML VIAL IVP STA (09:05)
[2022-01-18] MEDS ORDERED: DEXAMETHASONE SOD PHOSPHATE 10 MG/ML 1 ML VIAL IV STA (09:05)
--- NOTE | 2022-01-18 09:20 | ED ---
Headache HPI - General Chief Complaint: Headache Stated Complaint: Headache Time Seen by Provider: 01/18/22 08:46 Source: patient, RN notes reviewed Mode of arrival: ambulatory Limitations: no limitations - History of Present Illness Initial Comments: This is a 41-year-old female who presents to the emergency department for a headache, sore throat, and body aches. Symptoms have been present for 2 days. She's had no relief with Tylenol. Her daughter did recently test positive for COVID. Patient states that she is vaccinated but not boosted. Denies any fevers, chills, cough, dyspnea, chest pain, palpitations, abdominal pain, nausea, vomiting, or diarrhea. MD Complaint: headache Onset/Timin -: days(s) - Related Data Home Medications Medication Instructions Recorded Confirmed Fludrocortisone [Florinef] 0.1 mg PO HS 11/06/13 11/15/20 Hydrocortisone [Cortef] 15 mg PO DAILY 11/06/13 11/15/20 Hydrocortisone [Cortef] 10 mg PO HS 06/28/16 11/15/20 carBAMazepine [TEGretol] 200 mg PO BID 06/28/16 11/15/20 Cetirizine HCl [Zyrtec] 10 mg PO HS 11/15/20 11/15/20 Cholecalciferol [Vitamin D3 (25 50 mcg PO HS 11/15/20 11/15/20 Mcg = 1000 Iu)] Phentermine HCl [Adipex-P] 37.5 mg PO DAILY 11/15/20 11/15/20 Previous Rx's Medication Instructions Recorded Docusate [Colace] 100 mg PO BID #30 capsule 11/16/20 HYDROcodone/APAP 5-325MG [[place] 1 tab PO Q6HR PRN 3 Days #12 tab 11/16/20 5-325] Nirmatrelvir/Ritonavir [Paxlovid 1 each PO BID 5 Days #10 each 01/18/22 300-100 mg Pack (Eua)] Ondansetron Odt [Zofran Odt] 4 mg PO Q8HR PRN #20 tab 01/18/22 Allergies Allergy/AdvReac Type Severity Reaction Status Date / Time erythromycin base AdvReac Interacts Verified 01/18/22 08:14 [Erythromycin Base] w/seizure meds Review of Systems ROS Statement: Those systems with pertinent positive or pertinent negative responses have been documented in the HPI. ROS Other: All systems not noted in ROS Statement are negative. Past Medical History Past Medical History: Seizure Disorder Additional Past Medical History / Comment(s): addisons disease. epileptic History of Any Multi-Drug Resistant Organisms: None Reported Past Surgical History: Tubal Ligation Additional Past Surgical History / Comment(s): cosmetic sx Past Psychological History: Anxiety Smoking Status: Never smoker Past Alcohol Use History: None Reported Past Drug Use History: Marijuana General Exam Limitations: no limitations General appearance: alert, in distress Head exam: Present: atraumatic, normocephalic, normal inspection Eye exam: Present: normal appearance, PERRL, EOMI. Absent: scleral icterus, conjunctival injection, periorbital swelling Respiratory exam: Present: normal lung sounds bilaterally. Absent: respiratory distress, wheezes, rales, rhonchi, stridor Cardiovascular Exam: Present: regular rate, normal rhythm, normal heart sounds. Absent: systolic murmur, diastolic murmur, rubs, gallop, clicks Neurological exam: Present: alert, oriented X3, CN II-XII intact Psychiatric exam: Present: normal affect, normal mood Skin exam: Present: warm, dry, intact, normal color. Absent: rash Course Vital Signs 01/18/22 01/18/22 01/18/22 08:09 12:15 12:20 Temperature 98.7 F 97.6 F Pulse Rate 111 H 78 Respiratory 18 18 Rate Blood Pressure 103/69 105/70 105/66 O2 Sat by Pulse 99 99 95 Oximetry 01/18/22 01/18/22 12:25 12:35 Temperature 98.0 F 98 F Pulse Rate 81 79 Respiratory 16 15 Rate Blood Pressure 100/64 105/69 O2 Sat by Pulse 96 98 Oximetry Medical Decision Making - Medical Decision Making This is a 41-year-old female who presents to the emergency department for a headache, sore throat, and body aches. Patient positive for COVID-19. She was given IV fluids and a migraine cocktail consisting of Reglan, Decadron, Toradol, and Benadryl. She had improvement after medication, but still stated that she felt bad. She was subsequently given a dose of Haldol and Dilaudid. Afterwards, she felt significantly better. Prescription for Paxlovid was provided. She was also given a prescription for Zofran, as she did have some nausea earlier today. Advised supportive management for ongoing symptoms. Instructed her to quarantine for 5 days and practice extra precautions for an additional 5 days, including always wearing a mask around others and avoiding travel. Return precautions reviewed in depth, the patient is instructed to return to the emergency department with any new, worsening, or concerning symptoms. Patient verbalized understanding. This case was discussed in detail with the attending ED physician. Presentation, findings, and treatment plan discussed in detail as well. - Lab Data Lab Results 01/18/22 Range/Units 08:21 Coronavirus (PCR) Detected A (Not Detectd) Disposition Clinical Impression: COVID-19 Disposition: HOME SELF-CARE Instructions (If sedation given, give patient instructions): COVID-19 (Coronavirus Disease 2019) (ED), How to Recover from COVID-19 at Home (ED) Additional Instructions: Return to the emergency department with any new, worsening, or concerning symptoms. Take the Paxlovid as prescribed. The Zofran can be taken up to every 8 hours as needed for nausea and vomiting. Alternate with ibuprofen and Tylenol as needed for pain relief. Quarantine for 5 days and practice extra precautions for an additional 5 days, including always wearing a mask around others and avoiding travel. Prescriptions: Nirmatrelvir/Ritonavir [Paxlovid 300-100 mg Pack (Eua)] 1 each PO BID 5 Days #10 each Ondansetron Odt [Zofran Odt] 4 mg PO Q8HR PRN #20 tab PRN Reason: Nausea And Vomiting Is patient prescribed a controlled substance at d/c from ED?: No Referrals: Troy Kaiser DO [Primary Care Provider] - 1-2 days
[2022-01-18] MEDS ORDERED: HYDROmorphone 0.5 MG/0.5 ML SYRINGE IVP STA (11:53)
[2022-01-18] MEDS ORDERED: HALOPERIDOL LACTATE 5 MG/ML 1 ML VIAL IVP STA (11:53)
[2022-01-18 12:37] VITALS: BP 105/69; PULSE 79; RESP 15; TEMP 98
== END 2022-01-18 12:43 | disposition home or self-care (01) ==
LOC: EC 07:51
DX: U07.1 COVID-19 (principal); F41.9 Anxiety disorder, unspecified; F12.90 Cannabis use, unspecified, uncomplicated; Z88.1 Allergy status to other antibiotic agents; Z79.899 Other long term (current) drug therapy
CPT/HCPCS: 87635; 99284; 96374; 96375 ×5; 96361; J1200; J1630; J1100; J2765; J1885; J1170

== ENCOUNTER 2024-11-14 22:57 | Emergency (ER) | payer MEDICAID ==
--- NOTE | 2024-11-15 00:05 | ED ---
General Adult HPI - General Chief complaint: Nausea/Vomiting/Diarrhea Stated complaint: NVD dizzy Time Seen by Provider: 11/14/24 23:14 Source: patient, RN notes reviewed Mode of arrival: ambulatory Limitations: no limitations - History of Present Illness Initial comments: This is a 44-year-old female with history of tubal ligation, epilepsy and Millstone's disease presenting for dizziness/fatigue for almost 1 week. Patient endorses associated nausea and diarrhea. States symptoms worsened after spending an extended period of time in the heat at a wedding today. Also endorses swelling in her lower extremities. Denies fever, chills, loss of consciousness, palpitations, chest pain, abdominal pain, hematochezia, melena, urinary symptoms. Onset/Timin -: days(s) - Related Data Home Medications Medication Instructions Recorded Confirmed Fludrocortisone [Florinef] 0.1 mg PO HS 11/06/13 11/15/20 Hydrocortisone [Cortef] 15 mg PO DAILY 11/06/13 11/15/20 Hydrocortisone [Cortef] 10 mg PO HS 06/28/16 11/15/20 carBAMazepine [TEGretol] 200 mg PO BID 06/28/16 11/15/20 Cetirizine HCl [Zyrtec] 10 mg PO HS 11/15/20 11/15/20 Cholecalciferol [Vitamin D3 (25 50 mcg PO HS 11/15/20 11/15/20 Mcg = 1000 Iu)] Phentermine HCl [Adipex-P] 37.5 mg PO DAILY 11/15/20 11/15/20 Previous Rx's Medication Instructions Recorded Docusate [Colace] 100 mg PO BID #30 capsule 11/16/20 HYDROcodone/APAP 5-325MG [[place] 1 tab PO Q6HR PRN 3 Days #12 tab 11/16/20 5-325] Nirmatrelvir/Ritonavir [Paxlovid 1 each PO BID 5 Days #10 each 01/18/22 300-100 mg Pack (Eua)] Ondansetron Odt [Zofran Odt] 4 mg PO Q8HR PRN #20 tab 01/18/22 Allergies Allergy/AdvReac Type Severity Reaction Status Date / Time erythromycin base AdvReac Interacts Verified 11/14/24 22:59 [Erythromycin Base] w/seizure meds Review of Systems ROS Statement: Those systems with pertinent positive or pertinent negative responses have been documented in the HPI. ROS Other: All systems not noted in ROS Statement are negative. Past Medical History Past Medical History: Seizure Disorder Additional Past Medical History / Comment(s): addisons disease. epileptic History of Any Multi-Drug Resistant Organisms: None Reported Past Surgical History: Tubal Ligation Additional Past Surgical History / Comment(s): cosmetic sx Past Psychological History: Anxiety Smoking Status: Never smoker Past Alcohol Use History: None Reported Past Drug Use History: Marijuana General Exam Limitations: no limitations General appearance: alert, in no apparent distress Head exam: Present: atraumatic, normocephalic, normal inspection Eye exam: Present: normal appearance, PERRL, EOMI. Absent: scleral icterus, conjunctival injection, periorbital swelling ENT exam: Present: normal exam, mucous membranes moist Neck exam: Present: normal inspection. Absent: tenderness, meningismus, lymphadenopathy Respiratory exam: Present: normal lung sounds bilaterally. Absent: respiratory distress, wheezes, rales, rhonchi, stridor, accessory muscle use, decreased breath sounds, prolonged expiratory Cardiovascular Exam: Present: regular rate, normal rhythm, normal heart sounds. Absent: systolic murmur, diastolic murmur, rubs, gallop, clicks GI/Abdominal exam: Present: soft, tenderness (Diffuse tenderness without guarding), normal bowel sounds. Absent: distended, guarding, rebound, rigid Extremities exam: Present: normal inspection, full ROM, normal capillary refill. Absent: tenderness, pedal edema, joint swelling, calf tenderness Back exam: Present: normal inspection Neurological exam: Present: alert, oriented X3, CN II-XII intact Psychiatric exam: Present: normal affect, normal mood Skin exam: Present: warm, dry, intact, normal color. Absent: rash Course Vital Signs 11/14/24 11/15/24 11/15/24 22:59 01:58 02:49 Temperature 97.3 F L 97.4 F L Pulse Rate 76 83 76 Respiratory 16 19 18 Rate Blood Pressure 132/98 119/72 108/69 O2 Sat by Pulse 100 100 100 Oximetry Medical Decision Making - Medical Decision Making Was pt. sent in by a medical professional or institution (, PA, POULTRY OFFAL ICER, urgent care, hospital, or senior care...) When possible be specific @ -No Did you speak to anyone other than the patient for history (EMS, parent, family, police, friend...)? What history was obtained from this source @ -No Did you review nursing and triage notes (agree or disagree)? Why? @ -I reviewed and agree with nursing and triage notes Were old charts reviewed (outside hosp., previous admission, EMS record, old EKG, old radiological studies, urgent care reports/EKG's, senior care records)? Report findings @ -No old charts were reviewed Differential Diagnosis (chest pain, altered mental status, abdominal pain women, abdominal pain men, vaginal bleeding, weakness, fever, dyspnea, syncope, headache, dizziness, GI bleed, back pain, seizure, CVA, palpatations, mental health, musculoskeletal)? @ -Differential Dizziness: Benign paroxysmal positional Vertigo, Meniere's disease, otitis media, acoustic neuroma, vertebrobasilar insufficiency, cerebellar stroke, encephalitis, hypovolemic, arrhythmia, coronary artery syndrome, anemia, this is not meant to be an all-inclusive list EKG interpreted by me (3pts min.). @ -Sinus rhythm without ST deviation or T wave inversion. Ventricular rate 67 bpm, AMRIK 157 ms, QRS 89 ms, QTc 441 ms. X-rays interpreted by me (1pt min.). @ -None done CT interpreted by me (1pt min.). @ -None done U/S interpreted by me (1pt. min.). @ -None done What testing was considered but not performed or refused? (CT, X-rays, U/S, labs)? Why? @ -None What meds were considered but not given or refused? Why? @ -None Did you discuss the management of the patient with other professionals (prof medina i.e. , PA, P[employer] ICER, lab, RT, psych nurse, social studies teacher, tower watchman, teacher, special officer automat, pillowcase cleaner)? Give summary @ -No Was smoking cessation discussed for >3mins.? @ -No Was critical care preformed (if so, how long)? @ -No Were there social determinants of health that impacted care today? How? (Homelessness, low income, unemployed, alcoholism, drug addiction, transportation, low edu. Level, literacy, decrease access to med. care, [facility], rehab)? @ -No Was there de-escalation of care discussed even if they declined (Discuss DNR or withdrawal of care, Hospice)? DNR status @ -No What co-morbidities impacted this encounter? (DM, HTN, Smoking, COPD, CAD, Cancer, CVA, ARF, Chemo, Hep., AIDS, mental health diagnosis, sleep apnea, morbid obesity)? @ -Millstone's disease Was patient admitted / discharged? Hospital course, mention meds given and route, prescriptions, significant lab abnormalities, going to OR and other pertinent info. @ -Patient initially provided IV normal saline and hydrocortisone. Lab work notable for glucose 114 and cortisol 35.0. UA unremarkable. Advised patient to maintain hydration and rest and shades/indoors for the next 24-48 hours. Follow-up with PCP regarding any ongoing symptoms. Return to ER if experiencing worsening dizziness, loss of consciousness, altered mental status. Discussed patient with Dr. Velasquez. Undiagnosed new problem with uncertain prognosis? @ -No Drug Therapy requiring intensive monitoring for toxicity (Heparin, Nitro, Insulin, Cardizem)? @ -No Were any procedures done? @ -No Diagnosis/symptom? @ -Heat exhaustion, dehydration Acute, or Chronic, or Acute on Chronic? @ -Acute Uncomplicated (without systemic symptoms) or Complicated (systemic symptoms)? @ -Complicated Side effects of treatment? @ -No Exacerbation, Progression, or Severe Exacerbation? @ -Exacerbation Poses a threat to life or bodily function? How? (Chest pain, [place], [place], pneumonia, PE, COPD, DKA, ARF, appy, cholecystitis, CVA, Diverticulitis, Homicidal, Suicidal, threat to staff... and all critical care pts) @ -No - Lab Data Result diagrams: 11/15/24 00:42 11/15/24 00:42 Lab Results 11/15/24 11/15/24 11/15/24 Range/Units 00:42 00:42 00:42 WBC 9.63 (4.50-10.00) 10*3/uL RBC 4.22 (4.10-5.20) 10*6/uL Hgb 12.9 (12.0-15.0) g/dL Hct 39.0 (37.2-46.3) % MCV 92.4 (80.0-97.0) fL MCH 30.6 (27.0-32.0) pg MCHC 33.1 (32.0-37.0) g/dL Plt Count 307 (140-440) 10*3/uL MPV 9.3 L (9.5-12.2) fL Immature Gran % (Auto) 0.2 % Neutrophils % 76.9 % Lymphocytes % 17.8 % Monocytes % 4.8 % Eosinophils % 0.0 % Basophils % 0.3 % Immature Gran # 0.02 (0.00-0.04) 10*3/uL Neutrophils # 7.41 (1.80-7.70) 10*3/uL Lymphocytes # 1.71 (0.90-5.00) 10*3/uL Monocytes # 0.46 (0.20-1.00) 10*3/uL Eosinophils # 0.00 L (0.04-0.35) 10*3/uL Basophils # 0.03 (0.00-0.10) 10*3/uL Sodium 141 (137-145) mmol/L Potassium 3.5 (3.5-5.1) mmol/L Chloride 106 (98-107) mmol/L Carbon Dioxide 26 (22-30) mmol/L Anion Gap 9 mmol/L BUN 10 (7-17) mg/dL Creatinine 0.71 (0.52-1.04) mg/dL Est GFR (CKD-EPI)AfAm >90 (>60 ml/min/1.73 sqM) Est GFR (CKD-EPI)NonAf >90 (>60 ml/min/1.73 sqM) Glucose 114 H (74-99) mg/dL POC Glucose (mg/dL) (70-110) mg/dL POC Glu Artificial Breeding Distributor ID Plasma Lactic Acid Abhi (0.7-2.0) mmol/L Calcium 9.4 (8.4-10.2) mg/dL Magnesium 2.0 (1.6-2.3) mg/dL Total Bilirubin 0.5 (0.2-1.3) mg/dL AST 23 (14-36) U/L ALT 12 (4-34) U/L Alkaline Phosphatase 102 (38-126) U/L Total Protein 7.0 (6.3-8.2) g/dL Albumin 4.6 (3.5-5.0) g/dL Cortisol 35.0 H (3.1-22.4) UG/DL Urine Color Colorless Urine Appearance Clear (Clear) Urine pH 6.5 (5.0-8.0) Ur Specific [place] 1.003 (1.001-1.035) Urine Protein Negative (Negative) Urine Glucose (UA) Negative (Negative) Urine Ketones Negative (Negative) Urine Blood Negative (Negative) Urine Nitrite Negative (Negative) Urine Bilirubin Negative (Negative) Urine Urobilinogen <2.0 (<2.0) mg/dL Ur Leukocyte Esterase Negative (Negative) 11/15/24 11/15/24 Range/Units 00:42 00:52 WBC (4.50-10.00) 10*3/uL RBC (4.10-5.20) 10*6/uL Hgb (12.0-15.0) g/dL Hct (37.2-46.3) % MCV (80.0-97.0) fL MCH (27.0-32.0) pg MCHC (32.0-37.0) g/dL Plt Count (140-440) 10*3/uL MPV (9.5-12.2) fL Immature Gran % (Auto) % Neutrophils % % Lymphocytes % % Monocytes % % Eosinophils % % Basophils % % Immature Gran # (0.00-0.04) 10*3/uL Neutrophils # (1.80-7.70) 10*3/uL Lymphocytes # (0.90-5.00) 10*3/uL Monocytes # (0.20-1.00) 10*3/uL Eosinophils # (0.04-0.35) 10*3/uL Basophils # (0.00-0.10) 10*3/uL Sodium (137-145) mmol/L Potassium (3.5-5.1) mmol/L Chloride (98-107) mmol/L Carbon Dioxide (22-30) mmol/L Anion Gap mmol/L BUN (7-17) mg/dL Creatinine (0.52-1.04) mg/dL Est GFR (CKD-EPI)AfAm (>60 ml/min/1.73 sqM) Est GFR (CKD-EPI)NonAf (>60 ml/min/1.73 sqM) Glucose (74-99) mg/dL POC Glucose (mg/dL) 104 (70-110) mg/dL POC Glu Artificial Breeding Distributor ID Shane Ellis Plasma Lactic Acid Abhi 1.6 (0.7-2.0) mmol/L Calcium (8.4-10.2) mg/dL Magnesium (1.6-2.3) mg/dL Total Bilirubin (0.2-1.3) mg/dL AST (14-36) U/L ALT (4-34) U/L Alkaline Phosphatase (38-126) U/L Total Protein (6.3-8.2) g/dL Albumin (3.5-5.0) g/dL Cortisol (3.1-22.4) UG/DL Urine Color Urine Appearance (Clear) Urine pH (5.0-8.0) Ur Specific [place] (1.001-1.035) Urine Protein (Negative) Urine Glucose (UA) (Negative) Urine Ketones (Negative) Urine Blood (Negative) Urine Nitrite (Negative) Urine Bilirubin (Negative) Urine Urobilinogen (<2.0) mg/dL Ur Leukocyte Esterase (Negative) Disposition Clinical Impression: Dehydration, Heat exhaustion Disposition: HOME SELF-CARE Condition: Good Instructions (If sedation given, give patient instructions): Dehydration (ED), Heat Exhaustion (ED) Additional Instructions: Small sips of water and Gatorade/Pedialyte throughout the day for the next 24 hours. Return to ER if experiencing any worsening of symptoms. Is patient prescribed a controlled substance at d/c from ED?: No Referrals: Alicja Claudio DO [Primary Care Provider] - 1-2 days Time of Disposition: 02:04
[2024-11-15] MEDS: HYDROCORTISONE SUCCINATE 100 MG/2 ML VIAL IV STA (00:48)
[2024-11-15] MEDS: SODIUM CHLORIDE 0.9% 1,000 ML IV STA (00:48)
[2024-11-15 00:53] LABS: Glucose,Whole Blood 104 mg/dL (70-110)
[2024-11-15 00:59] LABS: Basophils # (A) 0.03 10*3/uL (0.00-0.10); Basophils % (A) 0.3 %; Eosinophils # (A) 0.00 10*3/uL (0.04-0.35); Eosinophils % (A) 0.0 %; HCT 39.0 % (37.2-46.3); HGB 12.9 g/dL (12.0-15.0); Lymphocytes # (A) 1.71 10*3/uL (0.90-5.00); Lymphocytes % (A) 17.8 %; MCH 30.6 pg (27.0-32.0); MCHC 33.1 g/dL (32.0-37.0); MCV 92.4 fL (80.0-97.0); Monocytes # (A) 0.46 10*3/uL (0.20-1.00); Monocytes % (A) 4.8 %; Neutrophils # (A) 7.41 10*3/uL (1.80-7.70); Neutrophils % (A) 76.9 %; Platelet Count 307 10*3/uL (140-440); RBC 4.22 10*6/uL (4.10-5.20); RDW 11.8 % (11.5-14.5); WBC 9.63 10*3/uL (4.50-10.00)
[2024-11-15 01:11] LABS: Bilirubin,Urine Negative (Negative); Blood,Urine Negative (Negative); Color,Urine Colorless; Glucose,Urine (UA) Negative (Negative); Ketones,Urine Negative (Negative); Leukocyte Esterase,Urine Negative (Negative); Nitrite,Urine Negative (Negative); PH, Urine 6.5 (5.0-8.0); Protein,Urine Negative (Negative); Specific Gravity,Urine 1.003 (1.001-1.035); Urobilinogen,Urine <2.0 mg/dL (<2.0)
[2024-11-15 01:24] LABS: ALT 12 U/L (4-34); AST 23 U/L (14-36); African American GFR (CKD) >90 (>60 ml/min/1.73 sqM); Albumin 4.6 g/dL (3.5-5.0); Alkaline Phosphatase 102 U/L (38-126); Anion Gap 9 mmol/L; Blood Urea Nitrogen 10 mg/dL (7-17); Calcium 9.4 mg/dL (8.4-10.2); Carbon Dioxide 26 mmol/L (22-30); Chloride 106 mmol/L (98-107); Glucose 114 mg/dL (74-99); Magnesium 2.0 mg/dL (1.6-2.3); Non-African American GFR(CKD) >90 (>60 ml/min/1.73 sqM); Potassium 3.5 mmol/L (3.5-5.1); Sodium 141 mmol/L (137-145); Total Protein 7.0 g/dL (6.3-8.2)
[2024-11-15 02:51] VITALS: BP 108/69; PULSE 76; RESP 18; TEMP 97.4
== END 2024-11-15 02:30 | disposition home or self-care (01) ==
LOC: EC 22:57
DX: T67.5XXA Heat exhaustion, unspecified, initial encounter (principal); E86.0 Dehydration; E27.1 Primary adrenocortical insufficiency; Z88.1 Allergy status to other antibiotic agents
CPT/HCPCS: 36415; 93005; 80053; 82533; 83605; 83735; 85025; 81003; 99284; 96374; 96361 ×2; J1720